=== PATIENT | female | born 1995 | race Caucasian/White ===

== ENCOUNTER 2017-01-22 15:15 | Emergency (ER) | payer OTHER ==
[2017-01-22 15:30] VITALS: BP 137/74
== END 2017-01-22 17:40 | disposition home or self-care (01) ==
LOC: ED 15:15
DX: T16.1XXA Foreign body in right ear, initial encounter (principal); H60.91 Unspecified otitis externa, right ear; X58.XXXA Exposure to other specified factors, initial encounter; Y93.89 Activity, other specified; Y92.89 Other specified places as the place of occurrence of the external cause; Y99.8 Other external cause status
CPT/HCPCS: J1885